=== PATIENT | female | born 1955 | race Caucasian/White ===

== ENCOUNTER 2019-06-27 20:32 | Emergency (ER) | payer BC ==
[~2019-06-27] VITALS: Ht 165.1 cm; Wt 77.1 kg
[~2019-06-27 20:32] MED LIST: LAC PO; MAC100 PO; PRILOSEC20 MG PO; XANAX0.25 MG PO
[2019-06-27 20:47] VITALS: Ht 165.1 cm; Wt 77.1 kg
[2019-06-28 01:01] VITALS: BP 115/55
== END 2019-06-28 01:01 | disposition home or self-care (01) ==
LOC: ED 20:32
DX: M25.562 Pain in left knee (principal); F41.9 Anxiety disorder, unspecified; M19.019 Primary osteoarthritis, unspecified shoulder
CPT/HCPCS: J1885; Q0092